=== PATIENT | female | born 1970 | race African-American/Black ===

== ENCOUNTER 2017-08-06 19:46 | Inpatient (IN) | payer MEDICAID ==
[~2017-08-06] VITALS: Ht 154.9 cm; Wt 78.9 kg
[2017-08-06] MEDS ORDERED: LOSARTAN POTASS25 MG ORAL (19:55)
[2017-08-06] MEDS ORDERED: ALBUTEROL2.5 MG/3 M INH (19:55)
[2017-08-06] MEDS ORDERED: SINGULAIR10 MG ORAL (19:55)
[2017-08-06] MEDS ORDERED: LASIX40 MG ORAL (19:55)
[2017-08-06] MEDS ORDERED: ADVAIR 100-501 EACH INH (19:55)
[2017-08-06] MEDS ORDERED: SPIRIVA18 MCG INH (19:55)
[2017-08-06] MEDS ORDERED: Ipratropium 0.02% Inh Soln 2.5ml UD HHN ONE (20:15)
[2017-08-06] MEDS ORDERED: Solu-MEDROL 125mg Inj IVP ONE (20:15)
[2017-08-06] MEDS ORDERED: Albuterol ud Inhalation HHN ONE (20:15)
--- NOTE | 2017-08-06 20:21 | Emergency Room Report ---
History of Present Illness General Chief Complaint: Dyspnea/Respdistress Source: Patient, EMS Present Illness HPI 46YOF BIBEMS with "SOB since April" - worse today. Used albuterol 6x. Not on prednisone. [place]" - comes with multiple belongings, bags States "no one can figure out whats wrong with me." Has COPD, CHF - on lasix - compliant Allergies: Coded Allergies: No Known Allergies (Unverified , 08/06/17) Patient History Past Medical History: CHF, COPD Past Surgical History: none Pertinent Family History: none Social History: Denies: smoking, alcohol use, drug use Last Menstrual Period: a wk ago Now: No Immunizations: UTD Reviewed Nursing Documentation: PMH: Agreed, PSxH: Agreed Nursing Documentation-PMH Hx Hypertension: Yes Hx Asthma: Yes Hx COPD: Yes - EMPHYSEMA Review of Systems All Other Systems: negative except mentioned in HPI Physical Exam Vital Signs Date Time Temp Pulse Resp B/P (MAP) Pulse Ox O2 Delivery O2 Flow Rate FiO2 08/06/17 19:38 97.3 121 20 135/98 95 Room Air Sp02 EP Interpretation: reviewed, normal General Appearance: normal inspection, well appearing, no apparent distress, alert, GCS 15, non-toxic Head: normocephalic, atraumatic Eyes: bilateral eye PERRL, bilateral eye EOMI ENT: normal ENT inspection, hearing grossly normal, normal pharynx, no angioedema, normal voice, TMs + canals normal, uvula midline, moist mucus membranes Neck: normal inspection, full range of motion, supple, thyroid normal, no meningismus, no bony tend Respiratory: normal inspection, no rhonchi, no respiratory distress, decreased breath sounds, accessory muscle use, chest symmetrical, palpation of chest normal Cardiovascular #1: no edema, no JVD, normal capillary refill, tachycardia Gastrointestinal: normal inspection, normal bowel sounds, non tender, soft, no mass, no peritonitis, non-distended, no guarding, no hernia, no pulsatile mass Genitourinary: no CVA tenderness Musculoskeletal: normal inspection, back normal, normal range of motion, no calf tenderness, pelvis stable, Librado's Sign negative Neurologic: normal inspection, alert, oriented x3, responsive, electronic equipment maint tech III-XII nml as tested, motor strength/tone normal, cerebellar normal, normal gait, speech normal Psychiatric: normal inspection, judgement/insight normal, mood/affect normal, no suicidal/homicidal ideation, no delusions Skin: normal inspection, normal color, no rash Lymphatic: normal inspection, no adenopathy Medical Decision Making Diagnostic Impression: Primary Impression: Dyspnea Qualified Codes: R06.00 - Dyspnea, unspecified Additional Impression: COPD exacerbation ER Course Tachycardia likley d/t albuterol inhaler X4-6 she used prior to arrival Labs: CXR: no acute CHF or PNA ECG shows sinus tachy Improved on Bipap with additional nebs, steroids, IV zithromax Endorsed: Dr King covering for Dr Benavidez per insurance ROGER admit, 902pm Elevated BNP however CXR doesnt show pulm congestion and patient took her lasix today "without much urinary output." Leaning more towards COPD exacerbation Afebrile, no leuks, no PNA on CXR - Additional Abx not given, patient not septic appearing EKG Diagnostic Results Rate: tachycardiac Rhythm: NSR ASA given to the pt in ED: No Rhythm Strip Diag. Results EP Interpretation: yes Rate: 122 Rhythm: NSR, no PVC's, no ectopy Chest X-Ray Diagnostic Results Chest X-Ray Diagnostic Results : Chest X-Ray Ordered: Yes # of Views/Limited/Complete: 1 View Indication: Shortness of Breath EP Interpretation: Yes Interpretation: no consolidation, no effusion, no pneumothorax, no acute cardiopulmonary disease Impression: No acute disease Electronically Signed by: Dr Sid Mon MD Last Vital Signs Date Time Temp Pulse Resp B/P (MAP) Pulse Ox O2 Delivery O2 Flow Rate FiO2 08/06/17 19:50 121 20 Room Air 08/06/17 19:38 97.3 135/98 95 Status: improved Disposition: ADMITTED INPATIENT Condition: Serious SID MON M.D. Aug 06, 2017 20:21
[2017-08-06 20:26] LABS: BASOPHILS % (AUTO) 1.4 % (0.0-2.0); EOSINOPHILS % (AUTO) 3.3 % (0.0-3.0); LYMPHOCYTES % (AUTO) 37.7 % (20.0-45.0); MEAN CORPUSCULAR HEMOGLOBIN 26.8 PG (27.0-31.0); MEAN CORPUSCULAR VOLUME 96 FL (80-99); MEAN PLATELET VOLUME 6.3 FL (6.5-10.1); MONOCYTES % (AUTO) 6.9 % (1.0-10.0); NEUTROPHILS % (AUTO) 50.8 % (45.0-75.0); PLATELET COUNT 435 K/UL (150-450); RED BLOOD COUNT 5.03 M/UL (4.20-5.40); RED CELL DISTRIBUTION WIDTH 16.1 % (11.6-14.8); WHITE BLOOD COUNT 10.5 K/UL (4.8-10.8)
[2017-08-06 20:37] LABS: ANION GAP 5 mmol/L (5-15); CALCIUM 9.1 MG/DL (8.5-10.1); CARBON DIOXIDE 33 MMOL/L (21-32); CHLORIDE 103 MMOL/L (98-107); CREATININE 1.1 MG/DL (0.55-1.30); GLOMERULAR FILTRATION RATE 53.7 mL/min (>60); POTASSIUM 3.6 MMOL/L (3.5-5.1); SODIUM 141 MMOL/L (136-145)
[2017-08-06 20:50] LABS: ALANINE AMINOTRANSFERASE 43 U/L (12-78); ALBUMIN/GLOBULIN RATIO 0.8 (1.0-2.7); ASPARTATE AMINO TRANSFERASE 36 U/L (15-37); CKMB 2.1 NG/ML (0.0-3.6); TOTAL PROTEIN 8.1 G/DL (6.4-8.2)
[2017-08-06 21:12] VITALS: BP 139/101
[2017-08-06] MEDS ORDERED: Zolpidem 5mg tab ORAL PRN (22:15)
[2017-08-07] VITALS: BP 120/78
[2017-08-07] MEDS: Solu-MEDROL 125mg Inj IVP SCH ×3 (00:16→11:43)
[2017-08-07] MEDS: Albuterol/Ipratropium 3ml neb HHN SCH ×4 (01:00→19:00)
[2017-08-07] MEDS ORDERED: D5 1/2NS 1,000 ML IV SCH (02:00)
[2017-08-07 04:00] VITALS: BP 115/91
[2017-08-07] MEDS: Heparin 5000 units/ml inj SUBQ SCH ×3 (05:33→21:06)
[2017-08-07 06:03] LABS: BASOPHILS % (AUTO) 0.4 % (0.0-2.0); EOSINOPHILS % (AUTO) 0.1 % (0.0-3.0); LYMPHOCYTES % (AUTO) 14.2 % (20.0-45.0); MEAN CORPUSCULAR HEMOGLOBIN 29.7 PG (27.0-31.0); MEAN CORPUSCULAR HGB CONC 31.2 G/DL (32.0-36.0); MEAN CORPUSCULAR VOLUME 95 FL (80-99); MEAN PLATELET VOLUME 6.7 FL (6.5-10.1); MONOCYTES % (AUTO) 1.2 % (1.0-10.0); NEUTROPHILS % (AUTO) 84.2 % (45.0-75.0); PLATELET COUNT 402 K/UL (150-450); RED BLOOD COUNT 4.44 M/UL (4.20-5.40); RED CELL DISTRIBUTION WIDTH 16.4 % (11.6-14.8); WHITE BLOOD COUNT 9.2 K/UL (4.8-10.8)
[2017-08-07 06:22] LABS: ANION GAP 7 mmol/L (5-15); CALCIUM 9.1 MG/DL (8.5-10.1); CARBON DIOXIDE 30 MMOL/L (21-32); CHLORIDE 103 MMOL/L (98-107); GLOMERULAR FILTRATION RATE > 60 mL/min (>60); POTASSIUM 4.2 MMOL/L (3.5-5.1); SODIUM 140 MMOL/L (136-145)
[2017-08-07 06:26] LABS: ALANINE AMINOTRANSFERASE 40 U/L (12-78); ALBUMIN/GLOBULIN RATIO 0.7 (1.0-2.7); ASPARTATE AMINO TRANSFERASE 31 U/L (15-37); MAGNESIUM 1.6 MG/DL (1.8-2.4); PHOSPHORUS 5.8 MG/DL (2.5-4.9); TOTAL PROTEIN 7.6 G/DL (6.4-8.2)
[2017-08-07 08:00] VITALS: BP 133/103
[2017-08-07] MEDS ORDERED: Azithromycin 500 MG in NS 275 ML IV SCH (09:00)
--- NOTE | 2017-08-07 11:53 | Diagnostic Imaging Report ---
Indication: Reason For Exam: SOB Technique: One view of the chest Comparison: none Findings: Heart is enlarged. The lungs and pleural spaces are clear. Impression: Cardiomegaly. No acute process
[2017-08-07 12:00] VITALS: BP 114/77
--- NOTE | 2017-08-07 12:14 | Consultation ---
Consult Note Consult Note [facility] DICTATION # [id number] LATANYA CORDERO M.D. Aug 07, 2017 12:14
[2017-08-07] MEDS: Furosemide 40mg tab ORAL SCH (14:21)
--- NOTE | 2017-08-07 15:27 | Cardiology Report ---
APPROVED REPORT EXAM: Two-dimensional and M-mode echocardiogram with Doppler and color Doppler. INDICATION Congestive Heart Failure M-Mode DIMENSIONS IVSd1.1 (0.7-1.1cm)Left Atrium (MM)4.1 (1.6-4.0cm) LVDd5.1 (3.5-5.6cm)Aortic Root2.4 (2.0-3.7cm) PWd0.8 (0.7-1.1cm)Aortic Cusp Exc.1.7 (1.5-2.0cm) LVDs4.2 (2.5-4.0cm) PWs1.3 cm Normal left ventricular chamber size. Global left ventricular hypokinesis. Left ventricular ejection fraction estimated to be 15-20 %. Borderline left ventricular hypertrophy. No evidence of pericardial effusion. Mild bi-atrial enlargement. Right ventricular chamber sizes is within normal limits. Focal aortic valve sclerosis with adequate cusp excursion. Thickened mitral valve leaflets with normal excursion. Mitral annulus and aortic root calcification. Pulmonic valve not well visualized. Normal tricuspid valve structure. IVC dilated at 2.1 cm with physiologic collapse suggestive of increased RA pressure. Possible echogenic material noted in LV [place]. A color flow and spectral Doppler study was performed and revealed: Trace aortic regurgitation. Moderate mitral regurgitation. Mitral inflow indicates restrictive pattern, implying severely elevated left atrial pressure (Grade III ). Moderate to severe, tricuspid regurgitation. Tricuspid systolic velocities suggests peak right ventricular systolic pressure of 44 mmHg, consistent with mild pulmonary hypertension. No pulmonic regurgitation present.
[2017-08-07 16:00] VITALS: BP 107/81
--- NOTE | 2017-08-07 16:48 | Cardiology Report ---
APPROVED REPORT EKG Measurement Heart [id number] Sinus tachycardia Possible Left atrial enlargement Anterior infarct, age undetermined Abnormal ECG
[2017-08-07] MEDS: Solu-MEDROL 40mg Inj IVP SCH ×2 (17:47→21:05)
[2017-08-07 20:00] VITALS: BP 130/85
--- NOTE | 2017-08-07 21:30 | Consultation ---
DATE OF CONSULTATION: 08/07/2017 PULMONARY CONSULTATION CONSULTING PHYSICIAN: Javier Blackwood M.D. REFERRING PHYSICIAN: Morgan Ennis M.D. REASON FOR CONSULTATION: COPD exacerbation. HISTORY OF PRESENT ILLNESS: The patient is a very unfortunate 46-year-old female, extensive former smoker with a history of COPD with multiple exacerbations over the course of the past few months who was actually due to see her pack changer, Dr. Patrick Thompson, today when she noted yesterday to have sudden onset of shortness of breath, cough, wheezing. She is on Advair, Spiriva, and Ventolin. She ran out of her Spiriva recently. She used her Ventolin multiple times without any alleviation, so she came into the ER. She also has CHF. Since, she presenting to the ER, she was placed on a Venturi mask. She was hypoxemic, but has been afebrile. She feels that her shortness of breath is better, she is coughing less and her wheezing has improved. PAST MEDICAL HISTORY: 1. COPD. 2. Asthma. 3. CHF. PAST SURGICAL HISTORY: None. ALLERGIES: No known drug allergies. MEDICATIONS: Prior to admission medications; Spiriva, Ventolin, Advair, Lasix, Singulair. Current medications per EMR. SOCIAL HISTORY: Extensive tobacco, quit a month ago. Prior cocaine user. No current drug or alcohol use. FAMILY HISTORY: Noncontributory. REVIEW OF SYSTEMS: Negative other than history of present illness. PHYSICAL EXAMINATION: VITAL SIGNS: Temperature 97, pulse 109, blood pressure 133/103, respiratory rate 21, saturating 92% on 14 liters of venturi mask at 55%. GENERAL: She is a well-developed and well-nourished female, in no acute distress. Awake, alert, and oriented x3. HEENT: Normocephalic and atraumatic. Oropharynx is clear with moist mucous membranes. NECK: Supple without any lymphadenopathy or JVD. CHEST: Distant, but clear. HEART: Regular rate and rhythm. ABDOMEN: Soft and nondistended. EXTREMITIES: No cyanosis, clubbing, or edema. ANCILLARY DATA: Chest x-ray, hyperinflation is noted, but no infiltrate, effusion, or other abnormality. Labs reviewed. U-tox positive for marijuana. ASSESSMENT: The patient is a 46-year-old female smoker with history of prior drug use, asthma as a child, chronic obstructive pulmonary disease is an adult, and congestive heart failure, presenting with shortness of breath and hypoxemia, likely secondary to an exacerbation of her chronic obstructive pulmonary disease. She has improved with IV steroids and bronchodilators. She is fairly stable at this point from a respiratory standpoint and the main issue is her hypoxemia and shortness of breath, which are slowly improving. PROBLEM LIST: 1. Chronic obstructive pulmonary disease with acute exacerbation. 2. History of asthma as a child. 3. Congestive heart failure without evidence of acute decompensated heart failure. 4. Extensive prior tobacco use. 5. History of prior drug use. TREATMENT PLAN: 1. Optimize pulmonary hygiene/mobilize as tolerated. 2. Titrate down FiO2 to keep saturation greater than 92%. 3. Around the clock and p.r.n. DuoNeb. 4. Solu-Medrol 60 mg IV q.6 h., we will decrease to 40 mg IV t.i.d. and taper further based on clinical response. 5. Continue p.o. azithromycin, today will be day #2. We will complete a five-day course. 6. Follow sputum culture and respiratory panel. 7. Discontinue IV fluids and resume home Lasix. 8. DVT prophylaxis. Heparin subcutaneous. 9. Encourage abstinence from tobacco and drug use. 10. Postdischarge, the patient will follow up with Dr. Thompson, her pack changer. Dr. Ennis, thank you for allowing me to assist in the care of your patient. If I may be of any assistance in the future, please do not hesitate to ask. Parul Cortez JOB#: [id number] CC:
[2017-08-08] VITALS: BP 135/78
[2017-08-08] MEDS: Albuterol/Ipratropium 3ml neb HHN SCH ×4 (01:00→19:03)
[2017-08-08 04:00] VITALS: BP 116/90
[2017-08-08] MEDS: Solu-MEDROL 40mg Inj IVP SCH ×2 (05:23→22:10)
[2017-08-08] MEDS: Heparin 5000 units/ml inj SUBQ SCH ×3 (05:23→14:02)
--- NOTE | 2017-08-08 08:30 | History and Physical Report ---
DATE OF ADMISSION: 08/06/2017 TIME OF EXAM: 10:45 a.m. CHIEF COMPLAINT: Shortness of breath. HISTORY OF PRESENT ILLNESS: This is a pleasant 46-year-old woman with history of COPD with number of recent readmissions to hospital at [facility] for COPD exacerbation, quit smoking two weeks ago, congestive heart failure, and hypertension, presented to [facility] emergency room with a complaint of shortness of breath. The patient was diagnosed with COPD exacerbation. The patient required BiPAP on admission. The patient was treated with IV Solu-Medrol in the form of nebulizer in the emergency room. At the present time, the patient is off BiPAP, speaks full sentences. Denies any chest pain. No nausea or vomiting. No abdominal pain. Still feels short of breath and feels that if she eats food, because of her lung status she has difficulty with swallowing. However, the patient does not disclose any swallowing difficulty at home prior to presentation. The patient denies any fever or chills. Reports of some whitish sputum production. No sick contacts. No recent travel. PAST SURGICAL HISTORY: None. MEDICATIONS: Medications at home, please refer to the medication reconciliation I have reviewed at length. ALLERGIES: No known drug allergies. SOCIAL HISTORY: The patient still but . She has five children. The patient quit smoking about two weeks ago. No illicit drug use. No alcohol abuse. FAMILY HISTORY: Mother had a brain aneurysm and at the age of 43. Father with history of diabetes and congestive heart failure. REVIEW OF SYSTEMS: A 14-point review of systems done.CONSTITUTIONAL: Generalized weakness. No fever or chills. HEENT: No change in vision. No tinnitus, No dysphagia. CARDIAC: No chest pain. No palpitation. History of congestive heart failure, hypertension, long history of COPD, reported of wheezing and shortness of breath. Does not have any home oxygen. ABDOMEN: No nausea, vomiting, or abdominal pain. Reported of some dysphagia during the acute COPD exacerbation. GENITOURINARY: No dysuria. No hematuria. No flank pain. NEUROLOGIC: No history of CVA or history of TIA. All other systems reviewed and negative except what is mentioned above. PHYSICAL EXAMINATION: GENERAL: The patient is sitting in bed. No acute distress. Speaks in full sentences. No accessory muscle use. VITAL SIGNS: Respiratory rate of 20, O2 saturation 99% on oxygen 2 liters by Ventimask at FiO2 of 55%, blood pressure 115/91, and afebrile, 98.5 degrees Fahrenheit. NECK: Supple. CARDIAC: S1 and S2 normal. A 1/6 systolic murmur at the left sternal border. LUNGS: Bilateral expiratory wheezing and decreased air movement and breath sounds noted. ABDOMEN: Soft. Positive bowel sounds. Nontender and nondistended. No guarding. No rebound. EXTREMITIES: No edema or cyanosis. NEUROLOGIC: No focal sensory or motor deficit. LABORATORY AND DIAGNOSTIC DATA: Upon admission, WBC 10.5, hemoglobin 13.5, hematocrit 48.1, platelets are 435,000. Sodium 141, potassium 3.6, chloride 103, bicarbonate 33, BUN 18, creatinine 1.1, glucose 112, and calcium 9.1. AST 36, ALT 43, and alkaline phosphatase 112. Creatine kinase 143. CK-MB 2.1. BNP 6092. Total protein 8.1. Albumin 3.5. Troponin 0.034. 12-lead EKG: Sinus tachycardia at a rate of about 120 with left atrial enlargement, poor R-wave progression, and low voltage. No ST elevation or depression. Nonspecific T-wave changes. CHEST X-RAY: No infiltrate, no consolidation. Evidence of COPD. IMPRESSION: 1. Respiratory failure. 2. [id number] obstructive pulmonary disease exacerbation. 3. Elevated BNP with underlying congestive heart failure, query for the acute decompensation of underlying congestive heart failure, unclear systolic versus diastolic. 4. Bronchospasm. 5. Hypertension. 6. Wheezing. 7. History of nicotine dependence, quit two weeks ago. PLAN: 1. The patient will be monitored in stepdown unit. 2. assistant manager bilingual. 3. Solu-Medrol 60 IV q.8 initially, now with downgraded to 40 IV q.8. 4. Oxygen to titrate O2 saturation above 92%. 5. Pulmonary evaluation. 6. A 2D echocardiogram. 7. Cardiology evaluation. 8. Diuretics. 9. We will hold IV fluids. 10. DVT and GI prophylaxis. 11. We will check electrolytes and repeat as indicated. 12. DuoNeb one vial q.4 h. [id number]. 13. Sputum for culture if any. 14. Azithromycin 500 IV daily. 15. Further recommendations will follow pending the patient's response to above measures and input by provider contracting consultant. 16. Code status is Full Code. 17. Discharge planning within two days to home. 18. Please see orders for further recommendations. Time spent on evaluation and inclusion of care is 70 minutes. Morgan D Parul Ennis DR: [place] JOB#: [id number] CC: JEANETTE
[2017-08-08] MEDS: Furosemide 40mg tab ORAL SCH (08:36)
[2017-08-08] MEDS: Azithromycin 250mg tab ORAL SCH (08:36)
[2017-08-08 08:47] VITALS: BP 120/95
[2017-08-08] MEDS ORDERED: Losartan 25mg tab ORAL SCH (09:00)
--- NOTE | 2017-08-08 11:38 | Pulmonology Progress Note ---
Assessment/Plan Problems: (1) Cardiomyopathy Assessment/Plan ASSESSMENT: The patient is a 46-year-old female smoker with history of prior drug use, asthma as a child, chronic obstructive pulmonary disease is an adult, and congestive heart failure, presenting with shortness of breath and hypoxemia, likely secondary to an exacerbation of her chronic obstructive pulmonary disease. She has improved with IV steroids and bronchodilators. She is fairly stable at this point from a respiratory standpoint and the main issue is her hypoxemia and shortness of breath, which are slowly improving. PROBLEM LIST: 1. Chronic obstructive pulmonary disease with acute exacerbation. 2. History of asthma as a child. 3. Congestive heart failure with EF 15 and hypokinesis + a component of ADHF 4. Extensive prior tobacco use. 5. History of prior drug use. TREATMENT PLAN: 1. Optimize pulmonary hygiene/mobilize as tolerated. 2. Titrate down FiO2 to keep saturation greater than 92%. 3. Around the clock and p.r.n. DuoNeb. 4. Decrease Solu-Medrol 40 mg IV BID and taper 5. PO Azithro (D3/5) 6. Follow sputum culture and respiratory panel. 7. Lasix 40 IV BID 8. Cardiology evaluation 9. DVT prophylaxis. Heparin subcutaneous. 10. Encourage abstinence from tobacco and drug use. 11. Postdischarge, the patient will follow up with Dr. Thompson, her biology faculty member. Subjective Allergies: Coded Allergies: No Known Allergies (Unverified , 08/06/17) Subjective AFVSS, stable on 2L NC, I/O inaccurate, EF 15-20% Less SOB, less cough, no wheezing, no F/C, no CP Objective Last 24 Hour Vital Signs Date Time Temp Pulse Resp B/P (MAP) Pulse Ox O2 Delivery O2 Flow Rate FiO2 08/08/17 08:47 98.1 101 21 120/95 100 Nasal Cannula 2.0 28 08/08/17 08:36 120/95 08/08/17 08:11 101 20 100 Nasal Cannula 2.0 08/08/17 08:00 102 18 100 Nasal Cannula 2.0 28 08/08/17 08:00 100 08/08/17 04:00 96 08/08/17 04:00 98.4 99 20 116/90 94 Nasal Cannula 2.0 08/08/17 02:34 Nasal Cannula 2.0 08/08/17 02:34 Nasal Cannula 2.0 08/08/17 00:00 99 08/08/17 00:00 98.0 100 20 135/78 100 Nasal Cannula 2.0 08/07/17 20:47 Nasal Cannula 2.0 08/07/17 20:47 Nasal Cannula 2.0 08/07/17 20:00 98.6 100 20 130/85 100 Nasal Cannula 2.0 08/07/17 20:00 101 08/07/17 16:00 96 08/07/17 16:00 97.5 99 22 107/81 100 Nasal Cannula 2.0 08/07/17 12:58 101 08/07/17 12:44 102 18 99 Nasal Cannula 2.0 28 08/07/17 12:32 101 20 96 Nasal Cannula 2.0 28 08/07/17 12:00 97.0 97 21 114/77 100 Nasal Cannula 2.0 Intake and Output 08/07/17 08/08/17 19:00 07:00 Intake Total 515 ml 400 ml Balance 515 ml 400 ml Intake Oral 240 ml 400 ml IV Total 275 ml # Voids 3 2 # Bowel Movements 4 General Appearance: no acute distress HEENT: normocephalic, atraumatic, mucous membranes moist Respiratory/Chest: crackles/rales - BiB , rhonchi - scattered clear with coughing Cardiovascular: regular rhythm, JVD - 6 cm, tachycardia Abdomen: normal bowel sounds, soft, non tender, no organomegaly, non distended Extremities: no cyanosis, no clubbing, other - trace KERI Current Medications Medications (Trade) Dose Ordered Sig/Ana Paula Route PRN Reason Start Time Stop Time Status Last Admin Dose Admin Acetaminophen (Tylenol) 650 mg Q6HR PRN ORAL Pain Scale (3-5) 08/06/17 22:15 09/05/17 22:14 Albuterol/ Ipratropium (Albuterol/ Ipratropium) 3 ml Q6HRT HHN 08/07/17 01:00 08/12/17 00:59 08/08/17 08:25 Azithromycin (Zithromax) 250 mg DAILY ORAL 08/08/17 09:00 08/15/17 08:59 08/08/17 08:36 Furosemide (Lasix) 40 mg DAILY ORAL 08/07/17 14:00 09/06/17 13:59 08/08/17 08:36 Heparin Sodium (Porcine) (Heparin 5000 units/ml) 5,000 units EVERY 8 HOURS SUBQ 08/07/17 06:00 09/06/17 05:59 08/07/17 21:06 Losartan Potassium (Cozaar) 25 mg DAILY ORAL 08/08/17 09:00 09/07/17 08:59 08/08/17 08:36 Methylprednisolone Sodium Succinate (Solu-MEDROL) 40 mg Q8HR IVP 08/07/17 18:00 09/06/17 17:59 08/08/17 05:23 Zolpidem Tartrate (Ambien) 5 mg BEDTIME PRN ORAL Insomnia 08/06/17 22:15 08/13/17 22:14 LATANYA CORDERO M.D. Aug 08, 2017 11:38
[2017-08-08 12:08] VITALS: BP 126/77
[2017-08-08] MEDS ORDERED: D5 1/2NS 1000ml IV ONE (15:59)
[2017-08-08 16:00] VITALS: BP 118/83
--- NOTE | 2017-08-08 19:33 | Cardiology Progress Note ---
Assessment/Plan Assessment/Plan [id number] diuretic acei instead of arb abstinence form cocaine tobacco and etoh compliance with med na and fluid restriction once chf better needs to have coerg added all above discussed with pt need anticoagulation for possible lv thrombus Objective Last 24 Hour Vital Signs Date Time Temp Pulse Resp B/P (MAP) Pulse Ox O2 Delivery O2 Flow Rate FiO2 08/08/17 19:03 95 18 97 Nasal Cannula 2.0 28 08/08/17 16:00 98 08/08/17 16:00 97.2 98 21 118/83 95 Nasal Cannula 2.0 28 08/08/17 13:44 99 20 100 Nasal Cannula 2.0 08/08/17 13:36 98 18 100 Nasal Cannula 2.0 28 08/08/17 12:08 97.7 101 22 126/77 97 Room Air 2.0 08/08/17 11:43 103 08/08/17 08:47 98.1 101 21 120/95 100 Nasal Cannula 2.0 28 08/08/17 08:36 120/95 08/08/17 08:11 101 20 100 Nasal Cannula 2.0 08/08/17 08:00 102 18 100 Nasal Cannula 2.0 28 08/08/17 08:00 100 08/08/17 04:00 96 08/08/17 04:00 98.4 99 20 116/90 94 Nasal Cannula 2.0 08/08/17 02:34 Nasal Cannula 2.0 08/08/17 02:34 Nasal Cannula 2.0 08/08/17 00:00 99 08/08/17 00:00 98.0 100 20 135/78 100 Nasal Cannula 2.0 08/07/17 20:47 Nasal Cannula 2.0 08/07/17 20:47 Nasal Cannula 2.0 08/07/17 20:00 98.6 100 20 130/85 100 Nasal Cannula 2.0 08/07/17 20:00 101 Intake and Output 08/07/17 08/08/17 19:00 07:00 Intake Total 515 ml 400 ml Balance 515 ml 400 ml Intake Oral 240 ml 400 ml IV Total 275 ml # Voids 3 2 # Bowel Movements 4 DAMARIS RIOS Aug 08, 2017 19:33
[2017-08-08 20:00] VITALS: BP 115/80
--- NOTE | 2017-08-08 20:10 | Internal Med Progress Note ---
Subjective Date of Service: Aug 08, 2017 Physician Name Jesus Desai Attending Physician Jesus Desai Current Medications Medications (Trade) Dose Ordered Sig/Ana Paula Route PRN Reason Start Time Stop Time Status Last Admin Dose Admin Acetaminophen (Tylenol) 650 mg Q6HR PRN ORAL Pain Scale (3-5) 08/06/17 22:15 09/05/17 22:14 Albuterol/ Ipratropium (Albuterol/ Ipratropium) 3 ml Q6HRT HHN 08/07/17 01:00 08/12/17 00:59 08/08/17 19:03 Azithromycin (Zithromax) 250 mg DAILY ORAL 08/08/17 09:00 08/15/17 08:59 08/08/17 08:36 Furosemide (Lasix) 40 mg EVERY 12 HOURS IV 08/08/17 21:00 09/07/17 20:59 Heparin Sodium (Porcine) (Heparin 5000 units/ml) 2,000 units ONCE ONCE IV 08/08/17 20:15 08/08/17 20:16 Heparin Sodium/ Dextrose 500 ml @ 28.413 mls/ hr adjust per protocol IV 08/08/17 20:15 09/07/17 20:14 Lisinopril (Zestril) 10 mg DAILY ORAL 08/08/17 21:00 09/07/17 20:59 Methylprednisolone Sodium Succinate (Solu-MEDROL) 40 mg Q12HR IVP 08/08/17 21:00 09/07/17 20:59 Warfarin Sodium (Coumadin per pharmacy) 1 ea DAILY PRN MISC Per rx protocol 08/08/17 19:30 09/07/17 19:29 UNV Zolpidem Tartrate (Ambien) 5 mg BEDTIME PRN ORAL Insomnia 08/06/17 22:15 08/13/17 22:14 Allergies: Coded Allergies: No Known Allergies (Unverified , 08/06/17) Social History reviewed no change Family History reviewed no change Cardiovascular: Reports: no symptoms, chest pain, edema, irregular heart rate, lightheadedness, palpitations, syncope, other Respiratory: Reports: no symptoms, cough, orthopnea, shortness of breath, SOB with excertion, SOB at rest, sputum, stridor, wheezing, other Objective Last Vital Signs Date Time Temp Pulse Resp B/P (MAP) Pulse Ox O2 Delivery O2 Flow Rate FiO2 08/08/17 19:14 94 20 100 Nasal Cannula 2.0 08/08/17 19:03 28 08/08/17 16:00 97.2 118/83 Intake and Output 08/07/17 08/08/17 19:00 07:00 Intake Total 515 ml 400 ml Balance 515 ml 400 ml Intake Oral 240 ml 400 ml IV Total 275 ml # Voids 3 2 # Bowel Movements 4 Assessment/Plan Assessment/Plan PROBLEM LIST: 1. Chronic obstructive pulmonary disease with acute exacerbation. 2. History of asthma as a child. 3. acute systolic Congestive heart failure with EF 15 and hypokinesis + a component of ADHF 4. Extensive prior tobacco use. 5. History of prior drug use. PLAN: 1. Optimize pulmonary hygiene/mobilize as tolerated. 2. Titrate down FiO2 t 1. keep saturation greater than 92%. 3. DuoNeb. 4. Decrease Solu-Medrol 40 mg IV BID and taper 5. PO Azithro Day 3/5 6. Follow sputum culture and respiratory panel. 7. Lasix 40 IV BID 8. Cardiology evaluation appreciated.titrate cardiac meds. 2D echo noted 9. DVT prophylaxis. Heparin subcutaneous. 10. Encourage abstinence from tobacco and drug use. 11. anticoagulation with coumadin monitor INR 12.ambulate JESUS DESAI Aug 08, 2017 20:10
[2017-08-08] MEDS ORDERED: Heparin 5000 units/ml inj IV ONE (20:15)
[2017-08-08] MEDS ORDERED: Heparin 25,000u/D5W 500ml 500 ML IV SCH (20:15)
[2017-08-08 20:20] LABS: MEAN CORPUSCULAR HEMOGLOBIN 27.9 PG (27.0-31.0); MEAN CORPUSCULAR HGB CONC 29.1 G/DL (32.0-36.0); MEAN CORPUSCULAR VOLUME 96 FL (80-99); MEAN PLATELET VOLUME 6.7 FL (6.5-10.1); PLATELET COUNT 365 K/UL (150-450); RED BLOOD COUNT 4.33 M/UL (4.20-5.40); RED CELL DISTRIBUTION WIDTH 16.2 % (11.6-14.8); WHITE BLOOD COUNT 20.7 K/UL (4.8-10.8)
[2017-08-08 20:34] LABS: INR 1.1 (0.9-1.1); PROTHROMBIN TIME 11.5 SEC (9.30-11.50)
[2017-08-08] MEDS ORDERED: Warfarin Sodium 5mg ORAL ONE (21:00)
[2017-08-08] MEDS: Lisinopril 10mg tab ORAL SCH (21:00)
[2017-08-08 22:37] LABS: LYMPHOCYTES % (MANUAL) 6 % (20-45); NEUTROPHILS % (MANUAL) 92 % (45-75); TOTAL CELLS COUNTED 100
[2017-08-08 22:38] LABS: BAND NEUTROPHILS % (MANUAL) 0 % (0-8); BASOPHILS % (MANUAL) 0 % (0-2); EOSINOPHILS % (MANUAL) 0 % (0-3); PLATELET ESTIMATE ADEQUATE
[2017-08-08 22:44] LABS: HYPOCHROMASIA 2+; PLATELET MORPHOLOGY NORMAL; POLYCHROMASIA 1+
[2017-08-09] VITALS: BP 120/73
[2017-08-09] MEDS: Albuterol/Ipratropium 3ml neb HHN SCH ×4 (01:22→18:55)
[2017-08-09 01:45] LABS: MEAN CORPUSCULAR HEMOGLOBIN 29.1 PG (27.0-31.0); MEAN CORPUSCULAR HGB CONC 30.5 G/DL (32.0-36.0); MEAN CORPUSCULAR VOLUME 96 FL (80-99); MEAN PLATELET VOLUME 7.2 FL (6.5-10.1); PLATELET COUNT 397 K/UL (150-450); RED BLOOD COUNT 4.61 M/UL (4.20-5.40); RED CELL DISTRIBUTION WIDTH 16.5 % (11.6-14.8); WHITE BLOOD COUNT 19.5 K/UL (4.8-10.8)
[2017-08-09 02:02] LABS: INR 1.2 (0.9-1.1); PROTHROMBIN TIME 12.2 SEC (9.30-11.50)
[2017-08-09 02:04] LABS: ANION GAP 5 mmol/L (5-15); CALCIUM 9.5 MG/DL (8.5-10.1); CARBON DIOXIDE 34 MMOL/L (21-32); CHLORIDE 101 MMOL/L (98-107); CREATININE 1.7 MG/DL (0.55-1.30); GLOMERULAR FILTRATION RATE 39.4 mL/min (>60); MAGNESIUM 1.9 MG/DL (1.8-2.4); PHOSPHORUS 4.2 MG/DL (2.5-4.9); POTASSIUM 4.3 MMOL/L (3.5-5.1); SODIUM 140 MMOL/L (136-145)
[2017-08-09] MEDS ORDERED: Heparin Sod 1000 units/ml 10ml IV ONE (02:30)
[2017-08-09] MEDS ORDERED: Heparin 25,000u/D5W 500ml 500 ML IV SCH ×2 (02:30→11:10)
[2017-08-09 04:00] VITALS: BP 127/83
--- NOTE | 2017-08-09 05:02 | Consultation ---
DATE OF CONSULTATION: 08/08/2017 CARDIOLOGY CONSULTATION CONSULTING PHYSICIAN: Christo Cerda M.D. REFERRING PHYSICIAN: Javier Blackwood M.D. REASON FOR REFERRAL: Cardiomyopathy. HISTORY OF PRESENT ILLNESS: This is a very unfortunate 46-year-old female with history of asthma. She has had increasing shortness of breath over the past few months. She has had several hospitalizations and ER evaluations at [facility] and [facility] with 12 years of COPD exacerbation. At [facility], apparently did some echocardiogram and some kind of a dye test. They told her that she has congestive heart failure and cardiomyopathy. They gave her some diuretics, but she runs out of her diuretics and she gets into trouble with frequent emergency room visits apparently because of the shortness of breath . She was supposed to see a factorer, Dr. Thompson, yesterday, but increasing shortness of breath caused to come to the emergency room here at [facility]. She has been admitted to the hospital with a concern about possibility of congestive heart failure leading to this consultation. She really has not had any chest pain. She has dyspnea on exertion with minimal activity. She has no PND. She only uses 1-1/2 pillows equivalent. She has occasional dizziness on standing and she really has any palpitation. PAST MEDICAL HISTORY: Positive for history of asthma especially with exacerbation, cardiomyopathy, congestive heart failure. No diabetes. No high blood pressure. No heart attack. No cancer. No stroke. No hepatitis or tuberculosis. No ulcers. No kidney problems, liver problems, thyroid problems, anemia, arthritis, blood clots, HIV, or AIDS. ALLERGIES: She is not allergic to any medications. SOCIAL HISTORY: She smokes. She used to use cocaine up to April when she was having problems. She does not drink alcoholic beverages. REVIEW OF SYSTEMS: GASTROINTESTINAL: Episodes of diarrhea today. GENITOURINARY: Negative. PULMONARY: Negative. CONSTITUTIONAL: Negative. NEUROLOGICAL: Negative. PHYSICAL EXAMINATION: GENERAL: Shows to be a middle-aged female, in no respiratory distress. On my arrival, she was getting a handheld nebulizer breathing treatment. NECK: Supple. There is jugular venous distention to the angle of the jaw approximately 12 to 13 cm of water. LUNGS: Crackles noted at the bases. CARDIAC: Regular rate and rhythm. No heaves, thrills, or gallops noted. ABDOMEN: Soft and nontender. Positive bowel sounds. EXTREMITIES: There is no edema of the lower extremities. NEUROLOGICAL: She is awake, good, responsive, and in no apparent distress. LABORATORY AND DIAGNOSTIC DATA: White count 9.2, hemoglobin 13.2, and platelet count of 402. Sodium is 140, potassium 4.2, chloride 102, bicarbonate 30, BUN 19, creatinine 1.0, glucose of 180, calcium is 9.1, phosphorus of 5.8, magnesium 1.6. Total bilirubin 0.4. Troponin 0.034. ProBNP was 6092 yesterday. Albumin of 3.1. Toxicology screen positive for marijuana. Her chest x-ray shows cardiomegaly, no acute processes. An echocardiogram has been performed. Increased apical echoes are noted on the echocardiogram and left ventricle thrombus cannot be excluded. There is moderate amount of mitral regurgitation and there is moderate degree of tricuspid regurgitation as systolic pressure at least of 44, although the IVC to me appears to be larger. Ejection fraction estimated at 15% to 20%. There is global hypokinesis in both right ventricle and left ventricle was noted. The patient's electrocardiogram shows low voltage criteria, sinus tachycardia, and some nonspecific T-wave changes. ASSESSMENT: 1. Cardiomyopathy. 2. Asthma. 3. Congestive heart failure. 4. Mitral regurgitation. 5. Tricuspid regurgitation. 6. History of cocaine use. 7. Tobacco use disorder. 8. Questionable left ventricular thrombus with increased left ventricular apical echoes. PLAN: This patient was seen in cardiac consultation. The patient needs to be on diuretics and she needs to be on ELIZABETH inhibitors and probably at some point with factorer. Beta-torie should be instituted in light of the fact that she has increased echoes in the left ventricular apex and apical thrombus cannot be excluded. She probably should be on anticoagulation with Coumadin to prevent left ventricular thrombus from emboli. I have discussed with the patient the need for abstinence from alcohol, tobacco, and cocaine use and the need to comply with diet including fluid restriction and sodium restriction, which she was not aware of and compliance with medications to prevent recurrent admissions. She will require to see a electric brain wave equipment mechanic and I have asked her to make sure that her insurance company does get her a referral to one. She probably needs to be seen as an outpatient for anticoagulation dose adjustment. The patient should be on some ELIZABETH inhibitors. I do not think losartan is the best medication for her. I would prefer she be on lisinopril if at all possible. Her blood pressure is from 118 to 120s on 25 mg of losartan, so I think she may be able to tolerate 10 mg of lisinopril. Once she is stabilized and her heart failure is better, if no contraindication, she will have some Coreg added and Coumadin will be started. Christo Cerda M.D. DR: David JOB#: [id number] CC:
[2017-08-09 08:00] VITALS: BP 125/86
[2017-08-09] MEDS: Azithromycin 250mg tab ORAL SCH (09:23)
[2017-08-09] MEDS: Lisinopril 10mg tab ORAL SCH (09:23)
[2017-08-09] MEDS: Solu-MEDROL 40mg Inj IVP SCH ×2 (09:24→21:00)
--- NOTE | 2017-08-09 11:45 | General Progress Note ---
Assessment/Plan Assessment/Plan 1. Chronic obstructive pulmonary disease with acute exacerbation. 2. History of asthma as a child. 3. acute systolic Congestive heart failure with EF 15 and hypokinesis + a component of ADHF 4. Extensive prior tobacco use. 5. History of prior drug use. PLAN: 1. Optimize pulmonary hygiene 2. Titrate down FiO2 1. keep saturation greater than 92%. 3. DuoNeb. 4. Decrease Solu-Medrol 40 mg IV BID and taper 5. PO Azithro 6. Follow sputum culture 7. Lasix 40 IV BID 8. Cardiology evaluation appreciated.titrate cardiac meds. 2D echo noted 9. Encourage abstinence from tobacco and drug use. 10. anticoagulation with coumadin /heparin bridge monitor INR 11.ambulate d/w team Subjective Date patient seen: Aug 09, 2017 Respiratory: Reports: no symptoms, cough, orthopnea, shortness of breath, SOB with excertion, SOB at rest, sputum, stridor, wheezing, other Allergies: Coded Allergies: No Known Allergies (Unverified , 08/06/17) Objective Last 24 Hour Vital Signs Date Time Temp Pulse Resp B/P (MAP) Pulse Ox O2 Delivery O2 Flow Rate FiO2 08/09/17 09:23 125/86 08/09/17 08:00 97.7 92 20 125/86 97 Nasal Cannula 2.0 08/09/17 08:00 100 08/09/17 07:07 98 18 99 Room Air 08/09/17 06:57 96 18 96 Nasal Cannula 2.0 28 08/09/17 04:00 100 08/09/17 04:00 97.9 95 20 127/83 100 Nasal Cannula 2.0 08/09/17 01:33 99 20 100 Nasal Cannula 2.0 08/09/17 01:22 91 18 98 Nasal Cannula 2.0 28 08/09/17 00:00 97.7 97 20 120/73 100 Nasal Cannula 2.0 08/09/17 00:00 100 08/08/17 21:00 110/60 08/08/17 20:00 99 08/08/17 20:00 97.5 97 20 115/80 100 Nasal Cannula 2.0 08/08/17 19:14 94 20 100 Nasal Cannula 2.0 08/08/17 19:03 95 18 97 Nasal Cannula 2.0 08/08/17 16:00 98 08/08/17 16:00 97.2 98 21 118/83 95 Nasal Cannula 2.0 28 08/08/17 13:44 99 20 100 Nasal Cannula 2.0 08/08/17 13:36 98 18 100 Nasal Cannula 2.0 28 08/08/17 12:08 97.7 101 22 126/77 97 Room Air 2.0 Intake and Output 08/08/17 08/09/17 19:00 07:00 Intake Total 700 ml 448.652 ml Output Total 4 ml Balance 696 ml 448.652 ml Intake Oral 700 ml 250 ml IV Total 198.652 ml Output Urine Total 4 ml # Voids 3 # Bowel Movements 4 3 Laboratory Tests 08/08/17 20:05: White Blood Count 20.7H, Red Blood Count 4.33, Hemoglobin 12.1, Hematocrit 41.4 , Mean Corpuscular Volume 96, Mean Corpuscular Hemoglobin 27.9, Mean Corpuscular Hemoglobin Concent 29.1L, Red Cell Distribution Width 16.2H, Platelet Count 365, Mean Platelet Volume 6.7, Neutrophils (%) (Auto) , Lymphocytes (%) (Auto) , Monocytes (%) (Auto) , Eosinophils (%) (Auto) , Basophils (%) (Auto) , Differential Total Cells Counted 100, Neutrophils % ( Manual) 92H, Lymphocytes % (Manual) 6L, Monocytes % (Manual) 2, Eosinophils % ( Manual) 0, Basophils % (Manual) 0, Band Neutrophils 0, Platelet Estimate Adequate, Platelet Morphology Normal, Polychromasia 1+, Hypochromasia 2+, Prothrombin Time 11.5, Prothromb Time International Ratio 1.1, Activated Partial Thromboplast Time 23 08/09/17 01:25: White Blood Count 19.5H, Red Blood Count 4.61, Hemoglobin 13.4, Hematocrit 44.1 , Mean Corpuscular Volume 96, Mean Corpuscular Hemoglobin 29.1, Mean Corpuscular Hemoglobin Concent 30.5L, Red Cell Distribution Width 16.5H, Platelet Count 397, Mean Platelet Volume 7.2, Neutrophils (%) (Auto) , Lymphocytes (%) (Auto) , Monocytes (%) (Auto) , Eosinophils (%) (Auto) , Basophils (%) (Auto) , Prothrombin Time 12.2H, Prothromb Time International Ratio 1.2H, Activated Partial Thromboplast Time 48H, Sodium Level 140, Potassium Level 4.3, Chloride Level 101, Carbon Dioxide Level 34H, Anion Gap 5, Blood Urea Nitrogen 40H, Creatinine 1.7H, Estimat Glomerular Filtration Rate 39.4, Glucose Level 211H, Calcium Level 9.5, Phosphorus Level 4.2, Magnesium Level 1.9, Troponin I 0.023 08/09/17 08:30: Activated Partial Thromboplast Time > 150*H Height (Feet): 5 Height (Inches): 1.00 Weight (Pounds): 149 General Appearance: no apparent distress EENT: PERRL/EOMI, normal ENT inspection Neck: supple, normal inspection Cardiovascular: normal rate, no JVD, systolic murmur, gallop/S3 Respiratory/Chest: rhonchi - bilaterally Abdomen: normal bowel sounds, non tender, soft, no organomegaly, no mass Extremities: normal range of motion, non-tender, normal inspection, no calf tenderness Edema: no edema noted Arm (L), no edema noted Arm (R), 1+ Leg (L), 1+ Leg (R), 1+ Pedal (L), 1+ Pedal (R) Edema: trace edema Neurologic: insurance instructor II-XII grossly normal Skin: normal pigmentation, warm/dry, no diaphoresis JESUS DESAI Aug 09, 2017 11:45
[2017-08-09 12:00] VITALS: BP 109/70
[2017-08-09 16:00] VITALS: BP 143/86
[2017-08-09] MEDS ORDERED: Warfarin Sodium 5mg ORAL ONE (17:00)
--- NOTE | 2017-08-09 17:28 | Pulmonology Progress Note ---
Assessment/Plan Problems: (1) Cardiomyopathy Assessment/Plan ASSESSMENT: The patient is a 46-year-old female smoker with history of prior drug use, asthma as a child, chronic obstructive pulmonary disease is an adult, and congestive heart failure, presenting with shortness of breath and hypoxemia, likely secondary to an exacerbation of her chronic obstructive pulmonary disease. She has improved with IV steroids and bronchodilators. She is fairly stable at this point from a respiratory standpoint and the main issue is her hypoxemia and shortness of breath, which are slowly improving. PROBLEM LIST: 1. Chronic obstructive pulmonary disease with acute exacerbation. 2. History of asthma as a child. 3. Congestive heart failure with EF 15 and hypokinesis + a component of ADHF 4. Extensive prior tobacco use. 5. History of prior drug use. TREATMENT PLAN: 1. Optimize pulmonary hygiene/mobilize as tolerated. 2. Titrate down FiO2 to keep saturation greater than 92%. 3. Around the clock and p.r.n. DuoNeb. 4. Decrease Solu-Medrol 30 mg IV BID and taper 5. PO Azithro (D4/5) 6. Follow sputum culture and respiratory panel. 7. D/C IV lasix, start PO lasix in light of GARIMA 8. F/U cards recs 9. DVT prophylaxis. IVUH + PO Coumadin 10. Encourage abstinence from tobacco and drug use. 11. Postdischarge, the patient will follow up with Dr. Thompson, her drafter cartographic. Subjective Allergies: Coded Allergies: No Known Allergies (Unverified , 08/06/17) Subjective Seen by cards, on HF regimen, now on AC Less SOB, cough better, no wheezing, no F/C Objective Last 24 Hour Vital Signs Date Time Temp Pulse Resp B/P (MAP) Pulse Ox O2 Delivery O2 Flow Rate FiO2 08/09/17 13:24 99 18 Room Air 21 08/09/17 13:14 101 20 98 Room Air 21 08/09/17 12:00 97.0 87 20 109/70 96 Nasal Cannula 2.0 08/09/17 12:00 93 08/09/17 09:23 125/86 08/09/17 08:00 97.7 92 20 125/86 97 Nasal Cannula 2.0 08/09/17 08:00 100 08/09/17 07:07 98 18 99 Room Air 21 08/09/17 06:57 96 18 96 Nasal Cannula 2.0 28 08/09/17 04:00 100 08/09/17 04:00 97.9 95 20 127/83 100 Nasal Cannula 2.0 08/09/17 01:33 99 20 100 Nasal Cannula 2.0 08/09/17 01:22 91 18 98 Nasal Cannula 2.0 28 08/09/17 00:00 97.7 97 20 120/73 100 Nasal Cannula 2.0 08/09/17 00:00 100 08/08/17 21:00 110/60 08/08/17 20:00 99 08/08/17 20:00 97.5 97 20 115/80 100 Nasal Cannula 2.0 08/08/17 19:14 94 20 100 Nasal Cannula 2.0 08/08/17 19:03 95 18 97 Nasal Cannula 2.0 28 Intake and Output 08/08/17 08/09/17 19:00 07:00 Intake Total 700 ml 448.652 ml Output Total 4 ml Balance 696 ml 448.652 ml Intake Oral 700 ml 250 ml IV Total 198.652 ml Output Urine Total 4 ml # Voids 3 # Bowel Movements 4 3 General Appearance: WD/WN, no acute distress HEENT: normocephalic, atraumatic, anicteric, mucous membranes moist Respiratory/Chest: chest wall non-tender, lungs clear, normal breath sounds Cardiovascular: normal peripheral pulses, normal rate, regular rhythm Abdomen: normal bowel sounds, soft, non tender, no organomegaly, non distended Extremities: no cyanosis, no clubbing, no edema Laboratory Tests 08/08/17 20:05: White Blood Count 20.7H, Red Blood Count 4.33, Hemoglobin 12.1, Hematocrit 41.4 , Mean Corpuscular Volume 96, Mean Corpuscular Hemoglobin 27.9, Mean Corpuscular Hemoglobin Concent 29.1L, Red Cell Distribution Width 16.2H, Platelet Count 365, Mean Platelet Volume 6.7, Neutrophils (%) (Auto) , Lymphocytes (%) (Auto) , Monocytes (%) (Auto) , Eosinophils (%) (Auto) , Basophils (%) (Auto) , Differential Total Cells Counted 100, Neutrophils % ( Manual) 92H, Lymphocytes % (Manual) 6L, Monocytes % (Manual) 2, Eosinophils % ( Manual) 0, Basophils % (Manual) 0, Band Neutrophils 0, Platelet Estimate Adequate, Platelet Morphology Normal, Polychromasia 1+, Hypochromasia 2+, Prothrombin Time 11.5, Prothromb Time International Ratio 1.1, Activated Partial Thromboplast Time 23 08/09/17 01:25: White Blood Count 19.5H, Red Blood Count 4.61, Hemoglobin 13.4, Hematocrit 44.1 , Mean Corpuscular Volume 96, Mean Corpuscular Hemoglobin 29.1, Mean Corpuscular Hemoglobin Concent 30.5L, Red Cell Distribution Width 16.5H, Platelet Count 397, Mean Platelet Volume 7.2, Neutrophils (%) (Auto) , Lymphocytes (%) (Auto) , Monocytes (%) (Auto) , Eosinophils (%) (Auto) , Basophils (%) (Auto) , Prothrombin Time 12.2H, Prothromb Time International Ratio 1.2H, Activated Partial Thromboplast Time 48H, Sodium Level 140, Potassium Level 4.3, Chloride Level 101, Carbon Dioxide Level 34H, Anion Gap 5, Blood Urea Nitrogen 40H, Creatinine 1.7H, Estimat Glomerular Filtration Rate 39.4, Glucose Level 211H, Calcium Level 9.5, Phosphorus Level 4.2, Magnesium Level 1.9, Troponin I 0.023 08/09/17 08:30: Activated Partial Thromboplast Time > 150*H Current Medications Medications (Trade) Dose Ordered Sig/Ana Paula Route PRN Reason Start Time Stop Time Status Last Admin Dose Admin Acetaminophen (Tylenol) 650 mg Q6HR PRN ORAL Pain Scale (3-5) 08/06/17 22:15 09/05/17 22:14 Albuterol/ Ipratropium (Albuterol/ Ipratropium) 3 ml Q6HRT HHN 08/07/17 01:00 08/12/17 00:59 08/09/17 13:14 Azithromycin (Zithromax) 250 mg DAILY ORAL 08/08/17 09:00 08/15/17 08:59 08/09/17 09:23 Furosemide (Lasix) 40 mg EVERY 12 HOURS IV 08/08/17 21:00 09/07/17 20:59 08/09/17 09:23 Heparin Sodium/ Dextrose 500 ml @ 28.413 mls/ hr adjust per protocol IV 08/09/17 11:10 09/08/17 11:09 08/09/17 15:48 Lisinopril (Zestril) 10 mg DAILY ORAL 08/08/17 21:00 09/07/17 20:59 08/09/17 09:23 Methylprednisolone Sodium Succinate (Solu-MEDROL) 40 mg Q12HR IVP 08/08/17 21:00 09/07/17 20:59 08/09/17 09:24 Warfarin Sodium (Coumadin per pharmacy) 1 ea DAILY PRN MISC Per rx protocol 08/08/17 19:30 09/07/17 19:29 Zolpidem Tartrate (Ambien) 5 mg BEDTIME PRN ORAL Insomnia 08/06/17 22:15 08/13/17 22:14 LATANYA CORDERO M.D. Aug 09, 2017 17:28
[2017-08-09 20:00] VITALS: BP 132/88
[2017-08-10] VITALS: BP 134/93
[2017-08-10] MEDS: Albuterol/Ipratropium 3ml neb HHN SCH ×4 (00:44→19:00)
[2017-08-10 04:00] VITALS: BP 130/62
[2017-08-10 06:18] LABS: INR 1.4 (0.9-1.1); PROTHROMBIN TIME 14.9 SEC (9.30-11.50)
[2017-08-10 06:19] LABS: ANION GAP 3 mmol/L (5-15); CARBON DIOXIDE 34 MMOL/L (21-32); CHLORIDE 103 MMOL/L (98-107); CREATININE 1.2 MG/DL (0.55-1.30); GLOMERULAR FILTRATION RATE 58.9 mL/min (>60); POTASSIUM 4.5 MMOL/L (3.5-5.1); SODIUM 140 MMOL/L (136-145)
[2017-08-10 08:00] VITALS: BP 106/51
[2017-08-10] MEDS: Solu-MEDROL 40mg Inj IVP SCH (09:09)
[2017-08-10] MEDS: Azithromycin 250mg tab ORAL SCH (09:11)
[2017-08-10] MEDS: Lisinopril 10mg tab ORAL SCH (09:11)
[2017-08-10] MEDS: Furosemide 40mg tab ORAL SCH (09:14)
[2017-08-10 12:00] VITALS: BP 119/82
--- NOTE | 2017-08-10 15:25 | Pulmonology Progress Note ---
Assessment/Plan Problems: (1) Cardiomyopathy Assessment/Plan ASSESSMENT: The patient is a 46-year-old female smoker with history of prior drug use, asthma as a child, chronic obstructive pulmonary disease is an adult, and congestive heart failure, presenting with shortness of breath and hypoxemia, likely secondary to an exacerbation of her chronic obstructive pulmonary disease. She has improved with IV steroids and bronchodilators. She is fairly stable at this point from a respiratory standpoint and the main issue is her hypoxemia and shortness of breath, which are slowly improving. PROBLEM LIST: 1. Chronic obstructive pulmonary disease with acute exacerbation. 2. History of asthma as a child. 3. Congestive heart failure with EF 15 and hypokinesis + a component of ADHF 4. Extensive prior tobacco use. 5. History of prior drug use. TREATMENT PLAN: 1. Optimize pulmonary hygiene/mobilize as tolerated. 2. PRN O2 keep saturation greater than 92%. 3. Around the clock and p.r.n. DuoNeb. 4. D/C SM, start PRed 40 and taper 5. Complete Azithro (D5/5) 6. Follow up cards recs 7. Continue PO laix 8. Needs outpatient HF management 9. DVT prophylaxis. PO Coumadin + IVUH (encourage compliance) 10. Encourage abstinence from tobacco and drug use. 11. Postdischarge, the patient will follow up with Dr. Thompson, her rope tow operator. Subjective Allergies: Coded Allergies: No Known Allergies (Unverified , 08/06/17) Subjective Refused IVUH, on coumadin, refused IV access AFVSS, stable on RA, less SOB, no cough, no wheezing, no F/C Cr better, diuresing Objective Last 24 Hour Vital Signs Date Time Temp Pulse Resp B/P (MAP) Pulse Ox O2 Delivery O2 Flow Rate FiO2 08/10/17 12:50 Room Air 21 08/10/17 12:49 Room Air 21 08/10/17 12:00 97.8 90 20 119/82 97 Room Air 08/10/17 12:00 92 08/10/17 09:11 106/51 08/10/17 08:00 96.4 94 20 106/51 96 Room Air 08/10/17 08:00 93 08/10/17 07:13 105 18 100 Room Air 21 08/10/17 07:07 105 16 96 Room Air 21 08/10/17 04:00 90 12/23/17 04:00 97.6 107 20 130/62 95 Room Air 08/10/17 04:00 97.6 107 20 130/62 95 Room Air 08/10/17 00:53 92 18 100 Room Air 21 08/10/17 00:44 96 16 96 Room Air 21 08/10/17 00:00 97.8 99 20 134/93 96 Nasal Cannula 2.0 08/10/17 00:00 96 08/09/17 20:00 98.2 96 20 132/88 100 Room Air 08/09/17 19:03 93 18 100 Room Air 21 08/09/17 18:56 96 16 97 Room Air 21 08/09/17 16:00 94 08/09/17 16:00 97.7 101 20 143/86 93 Nasal Cannula 2.0 Intake and Output 08/09/17 08/10/17 19:00 07:00 Intake Total 874 ml 500 ml Balance 874 ml 500 ml Intake Oral 840 ml 500 ml IV Total 34 ml # Voids 8 3 General Appearance: WD/WN, no acute distress HEENT: normocephalic, atraumatic, anicteric, mucous membranes moist Respiratory/Chest: chest wall non-tender, lungs clear, normal breath sounds, no respiratory distress Cardiovascular: normal peripheral pulses, normal rate, regular rhythm Abdomen: normal bowel sounds, soft, non tender, no organomegaly, non distended Extremities: no cyanosis, no clubbing, no edema Laboratory Tests 08/10/17 05:05: Prothrombin Time 14.9H, Prothromb Time International Ratio 1.4H, Sodium Level 140, Potassium Level 4.5, Chloride Level 103, Carbon Dioxide Level 34H, Anion Gap 3L, Blood Urea Nitrogen 39H, Creatinine 1.2, Estimat Glomerular Filtration Rate 58.9, Glucose Level 125H, Calcium Level 8.0L Current Medications Medications (Trade) Dose Ordered Sig/Ana Paula Route PRN Reason Start Time Stop Time Status Last Admin Dose Admin Acetaminophen (Tylenol) 650 mg Q6HR PRN ORAL Pain Scale (3-5) 08/06/17 22:15 09/05/17 22:14 Albuterol/ Ipratropium (Albuterol/ Ipratropium) 3 ml Q6HRT HHN 08/07/17 01:00 08/12/17 00:59 08/10/17 07:05 Azithromycin (Zithromax) 250 mg DAILY ORAL 08/08/17 09:00 08/15/17 08:59 08/10/17 09:11 Furosemide (Lasix) 40 mg DAILY ORAL 08/10/17 09:00 09/09/17 08:59 08/10/17 09:14 Heparin Sodium/ Dextrose 500 ml @ 28.413 mls/ hr adjust per protocol IV 08/09/17 11:10 09/08/17 11:09 08/09/17 15:48 Lisinopril (Zestril) 10 mg DAILY ORAL 08/08/17 21:00 09/07/17 20:59 08/10/17 09:11 Methylprednisolone Sodium Succinate (Solu-MEDROL) 30 mg Q12HR IVP 08/09/17 21:00 09/08/17 20:59 08/10/17 09:09 Warfarin Sodium (Coumadin per pharmacy) 1 ea DAILY PRN MISC Per rx protocol 08/08/17 19:30 09/07/17 19:29 Warfarin Sodium (Coumadin) 7.5 mg COUMADIN ONCE ORAL 08/10/17 17:00 08/10/17 17:01 Zolpidem Tartrate (Ambien) 5 mg BEDTIME PRN ORAL Insomnia 08/06/17 22:15 08/13/17 22:14 LATANYA CORDERO M.D. Aug 10, 2017 15:25
[2017-08-10 16:15] VITALS: BP 102/74
[2017-08-10] MEDS ORDERED: Warfarin Sodium 7.5mg ORAL ONE (17:00)
[2017-08-10 20:00] VITALS: BP 109/76
--- NOTE | 2017-08-10 20:23 | Cardiology Progress Note ---
Assessment/Plan Assessment/Plan dilated CMp possible apical thrombus CHF improving she is taking Coumadin, but refused IV Heparin continue Po Coumadin Subjective Subjective the patient reports breathing better has dypsnea with mdoerate exertion Objective Last 24 Hour Vital Signs Date Time Temp Pulse Resp B/P (MAP) Pulse Ox O2 Delivery O2 Flow Rate FiO2 08/10/17 20:13 Room Air 21 08/10/17 20:13 Room Air 21 08/10/17 16:15 97.6 89 18 102/74 97 Room Air 08/10/17 16:00 100 08/10/17 12:50 Room Air 21 08/10/17 12:49 Room Air 21 08/10/17 12:00 97.8 90 20 119/82 97 Room Air 08/10/17 12:00 92 08/10/17 09:11 106/51 08/10/17 08:00 96.4 94 20 106/51 96 Room Air 08/10/17 08:00 93 08/10/17 07:13 105 18 100 Room Air 08/10/17 07:07 105 16 96 Room Air 08/10/17 04:00 90 08/10/17 04:00 97.6 107 20 130/62 95 Room Air 08/10/17 04:00 97.6 107 20 130/62 95 Room Air 08/10/17 00:53 92 18 100 Room Air 08/10/17 00:44 96 16 96 Room Air 08/10/17 00:00 97.8 99 20 134/93 96 Nasal Cannula 2.0 08/10/17 00:00 96 General Appearance: alert EENT: PERRL/EOMI Neck: JVD Rhythm: NSR Cardiovascular: normal rate Respiratory/Chest: crackles/rales Abdomen: non tender, distended Intake and Output 08/09/17 08/10/17 19:00 07:00 Intake Total 874 ml 500 ml Balance 874 ml 500 ml Intake Oral 840 ml 500 ml IV Total 34 ml # Voids 8 3 Laboratory Tests Test 08/10/17 05:05 Prothrombin Time 14.9 SEC (9.30-11.50) H Prothromb Time International Ratio 1.4 (0.9-1.1) H Sodium Level 140 MMOL/L (136-145) Potassium Level 4.5 MMOL/L (3.5-5.1) Chloride Level 103 MMOL/L (98-107) Carbon Dioxide Level 34 MMOL/L (21-32) H Anion Gap 3 mmol/L (5-15) L Blood Urea Nitrogen 39 mg/dL (7-18) H Creatinine 1.2 MG/DL (0.55-1.30) Estimat Glomerular Filtration Rate 58.9 mL/min (>60) Glucose Level 125 MG/DL (74-106) H Calcium Level 8.0 MG/DL (8.5-10.1) ADELA OVALLES Aug 10, 2017 20:23
--- NOTE | 2017-08-10 20:41 | General Progress Note ---
Assessment/Plan Status: doing well, stable, tolerating diet, ambulating well Assessment/Plan 1. Chronic obstructive pulmonary disease with acute exacerbation. 2. History of asthma as a child. 3. acute systolic Congestive heart failure with EF 15 and hypokinesis + a component of ADHF 4. Extensive prior tobacco use. 5. History of prior drug use. PLAN: 1. Optimize pulmonary hygiene 2. Titrate down FiO2 as tolerated 1. keep saturation greater than 92%. 3. DuoNeb. 4. taper steroid 5. PO Azithro 6. Follow sputum culture 7. Lasix 40 IV BID 8. Cardiology evaluation appreciated.titrate cardiac meds. 2D echo noted 9. Encourage abstinence from tobacco and drug use. 10. anticoagulation with coumadin /heparin bridge monitor INR 11.ambulate d/w team Subjective Constitutional: Denies: no symptoms, malaise, weakness, other HEENT: Denies: no symptoms, eye pain, blurred vision, tearing, double vision, ear pain, ear discharge, nose pain, nose congestion, throat pain, throat swelling, mouth pain, mouth swelling, other Cardiovascular: Denies: no symptoms, chest pain, edema, irregular heart rate, lightheadedness, palpitations, syncope, other Respiratory: Denies: no symptoms, cough, SOB with excertion, stridor, other Gastrointestinal/Abdominal: Denies: no symptoms, abdomen distended, tarry stools, blood in stool, difficulty swallowing, nausea, poor appetite, poor fluid intake, rectal bleeding, other Genitourinary: Denies: no symptoms, frequency, hematuria, incontinence, other Neurologic/Psychiatric: Denies: no symptoms, anxiety, depressed, emotional problems, pre-existing deficit, seizure, tingling, weakness, other Endocrine: Denies: excessive sweating, flushing, intolerance to cold, intolerance to heat, increased hunger, increased thirst, increased urine, unexplained weight gain, unexplained weight loss, other Hematologic/Lymphatic: Denies: anemia, easy bleeding, easy bruising, other Allergies: Coded Allergies: No Known Allergies (Unverified , 08/06/17) Objective Last 24 Hour Vital Signs Date Time Temp Pulse Resp B/P (MAP) Pulse Ox O2 Delivery O2 Flow Rate FiO2 08/10/17 20:13 Room Air 21 08/10/17 20:13 Room Air 21 08/10/17 16:15 97.6 89 18 102/74 97 Room Air 08/10/17 16:00 100 08/10/17 12:50 Room Air 21 08/10/17 12:49 Room Air 21 08/10/17 12:00 97.8 90 20 119/82 97 Room Air 08/10/17 12:00 92 08/10/17 09:11 106/51 08/10/17 08:00 96.4 94 20 106/51 96 Room Air 08/10/17 08:00 93 08/10/17 07:13 105 18 100 Room Air 21 08/10/17 07:07 105 16 96 Room Air 21 08/10/17 04:00 90 08/10/17 04:00 97.6 107 20 130/62 95 Room Air 08/10/17 04:00 97.6 107 20 130/62 95 Room Air 08/10/17 00:53 92 18 100 Room Air 08/10/17 00:44 96 16 96 Room Air 08/10/17 00:00 97.8 99 20 134/93 96 Nasal Cannula 2.0 08/10/17 00:00 96 Intake and Output 08/09/17 08/10/17 19:00 07:00 Intake Total 874 ml 500 ml Balance 874 ml 500 ml Intake Oral 840 ml 500 ml IV Total 34 ml # Voids 8 3 Laboratory Tests 08/10/17 05:05: Prothrombin Time 14.9H, Prothromb Time International Ratio 1.4H, Sodium Level 140, Potassium Level 4.5, Chloride Level 103, Carbon Dioxide Level 34H, Anion Gap 3L, Blood Urea Nitrogen 39H, Creatinine 1.2, Estimat Glomerular Filtration Rate 58.9, Glucose Level 125H, Calcium Level 8.0L Height (Feet): 5 Height (Inches): 1.00 Weight (Pounds): 149 JESUS DESAI Aug 10, 2017 20:41
[2017-08-11] VITALS: BP 119/83
[2017-08-11] MEDS: Albuterol/Ipratropium 3ml neb HHN SCH ×4 (01:00→19:00)
[2017-08-11 04:00] VITALS: BP 134/89
[2017-08-11 08:00] VITALS: BP 125/69
[2017-08-11 09:01] LABS: BASOPHILS % (AUTO) 1.8 % (0.0-2.0); LYMPHOCYTES % (AUTO) 46.3 % (20.0-45.0); MEAN CORPUSCULAR HEMOGLOBIN 28.9 PG (27.0-31.0); MEAN CORPUSCULAR HGB CONC 30.7 G/DL (32.0-36.0); MEAN CORPUSCULAR VOLUME 94 FL (80-99); MEAN PLATELET VOLUME 6.9 FL (6.5-10.1); MONOCYTES % (AUTO) 6.7 % (1.0-10.0); NEUTROPHILS % (AUTO) 44.2 % (45.0-75.0); PLATELET COUNT 310 K/UL (150-450); RED BLOOD COUNT 4.68 M/UL (4.20-5.40); RED CELL DISTRIBUTION WIDTH 16.1 % (11.6-14.8); WHITE BLOOD COUNT 10.6 K/UL (4.8-10.8)
[2017-08-11 09:08] LABS: INR 2.2 (0.9-1.1); PROTHROMBIN TIME 22.7 SEC (9.30-11.50)
[2017-08-11] MEDS: Furosemide 40mg tab ORAL SCH (09:30)
[2017-08-11] MEDS: Lisinopril 10mg tab ORAL SCH (09:30)
--- NOTE | 2017-08-11 10:29 | Pulmonology Progress Note ---
Assessment/Plan Problems: (1) Cardiomyopathy Assessment/Plan ASSESSMENT: The patient is a 46-year-old female smoker with history of prior drug use, asthma as a child, chronic obstructive pulmonary disease is an adult, and congestive heart failure, presenting with shortness of breath and hypoxemia, likely secondary to an exacerbation of her chronic obstructive pulmonary disease. She has improved with IV steroids and bronchodilators. She is fairly stable at this point from a respiratory standpoint and the main issue is her hypoxemia and shortness of breath, which are slowly improving. PROBLEM LIST: 1. Chronic obstructive pulmonary disease with acute exacerbation. 2. History of asthma as a child. 3. Congestive heart failure with EF 15 and hypokinesis + a component of ADHF 4. Extensive prior tobacco use. 5. History of prior drug use. TREATMENT PLAN: 1. Optimize pulmonary hygiene/mobilize as tolerated. 2. PRN O2 keep saturation greater than 92%. 3. Around the clock and p.r.n. DuoNeb. 4. Continue Pred 40 and taper 5. Completed Azithro 6. Follow up cards recs 7. Continue PO lasix 8. Needs outpatient HF management 9. DVT prophylaxis. PO Coumadin 10. Encourage abstinence from tobacco and drug use. 11. Postdischarge, the patient will follow up with Dr. Thompson, her enterprise analyst. Subjective Allergies: Coded Allergies: No Known Allergies (Unverified , 08/06/17) Subjective INR 2.2, PO Coumadin only, now on Pred 40 AFVSS, stable on RA, less SOB, no cough, no wheezing, no F/C Cr continues to improve Objective Last 24 Hour Vital Signs Date Time Temp Pulse Resp B/P (MAP) Pulse Ox O2 Delivery O2 Flow Rate FiO2 08/11/17 09:30 125/69 08/11/17 08:00 97.4 95 21 125/69 97 Room Air 08/11/17 07:08 Room Air 21 08/11/17 07:08 Room Air 08/11/17 04:00 98.1 88 20 134/89 98 Room Air 08/11/17 04:00 91 08/11/17 01:59 Room Air 21 08/11/17 01:59 Room Air 21 08/11/17 00:00 91 08/11/17 00:00 97.3 92 20 119/83 98 Room Air 08/10/17 20:13 Room Air 21 08/10/17 20:13 Room Air 21 08/10/17 20:00 90 08/10/17 20:00 97.9 82 18 109/76 98 Room Air 08/10/17 16:15 97.6 89 18 102/74 97 Room Air 08/10/17 16:00 100 08/10/17 12:50 Room Air 21 08/10/17 12:49 Room Air 21 08/10/17 12:00 97.8 90 20 119/82 97 Room Air 08/10/17 12:00 92 Intake and Output 08/10/17 08/11/17 19:00 07:00 Intake Total 1080 ml Balance 1080 ml Intake Oral 1080 ml # Voids 7 2 # Bowel Movements 2 General Appearance: WD/WN, no acute distress HEENT: normocephalic, atraumatic, mucous membranes moist Respiratory/Chest: chest wall non-tender, lungs clear, normal breath sounds, no respiratory distress Cardiovascular: normal peripheral pulses, normal rate, regular rhythm Abdomen: normal bowel sounds, soft, non tender, no organomegaly, non distended Extremities: no cyanosis, no clubbing, no edema Laboratory Tests 08/11/17 07:41: White Blood Count 10.6, Red Blood Count 4.68, Hemoglobin 13.5, Hematocrit 44.0, Mean Corpuscular Volume 94, Mean Corpuscular Hemoglobin 28.9, Mean Corpuscular Hemoglobin Concent 30.7L, Red Cell Distribution Width 16.1H, Platelet Count 310 , Mean Platelet Volume 6.9, Neutrophils (%) (Auto) 44.2L, Lymphocytes (%) (Auto ) 46.3H, Monocytes (%) (Auto) 6.7, Eosinophils (%) (Auto) 1.0, Basophils (%) ( Auto) 1.8, Prothrombin Time 22.7H, Prothromb Time International Ratio 2.2H Current Medications Medications (Trade) Dose Ordered Sig/Ana Paula Route PRN Reason Start Time Stop Time Status Last Admin Dose Admin Acetaminophen (Tylenol) 650 mg Q6HR PRN ORAL Pain Scale (3-5) 08/06/17 22:15 09/05/17 22:14 Albuterol/ Ipratropium (Albuterol/ Ipratropium) 3 ml Q6HRT HHN 08/07/17 01:00 08/12/17 00:59 08/10/17 07:05 Furosemide (Lasix) 40 mg DAILY ORAL 08/10/17 09:00 09/09/17 08:59 08/11/17 09:30 Lisinopril (Zestril) 10 mg DAILY ORAL 08/08/17 21:00 09/07/17 20:59 08/11/17 09:30 Prednisone (predniSONE) 40 mg DAILY ORAL 08/11/17 09:00 09/10/17 08:59 08/11/17 09:30 Warfarin Sodium (Coumadin per pharmacy) 1 ea DAILY PRN MISC Per rx protocol 08/08/17 19:30 09/07/17 19:29 Warfarin Sodium (Coumadin) 2.5 mg COUMADIN ONCE ORAL 08/11/17 17:00 08/11/17 17:01 Zolpidem Tartrate (Ambien) 5 mg BEDTIME PRN ORAL Insomnia 08/06/17 22:15 08/13/17 22:14 LATANYA CORDERO M.D. Aug 11, 2017 10:29
[2017-08-11] MEDS ORDERED: NS 500ML ONE (10:44)
[2017-08-11] MEDS ORDERED: Tubing IV Secondary IV ONE (10:44)
[2017-08-11 12:00] VITALS: BP 131/73
--- NOTE | 2017-08-11 15:15 | Cardiology Report ---
APPROVED REPORT EKG Measurement Heart [id number] Normal sinus rhythm Biatrial enlargement Anterior infarct, age undetermined Abnormal ECG
[2017-08-11 16:00] VITALS: BP 116/83
[2017-08-11] MEDS ORDERED: Warfarin Sodium 2.5mg ORAL ONE (17:00)
--- NOTE | 2017-08-11 17:30 | Cardiology Progress Note ---
Assessment/Plan Assessment/Plan dilated CMp possible apical thrombus CHF itoday is therapeutic on Coumadin the patient is parallel on Prednisone, which increases risk of GI bleed will d/w pulmonary Subjective Subjective no significant changes has mdoerate dyspnea no orthopena ambrosio black stool Objective Last 24 Hour Vital Signs Date Time Temp Pulse Resp B/P (MAP) Pulse Ox O2 Delivery O2 Flow Rate FiO2 08/11/17 16:00 97.4 91 21 116/83 94 Room Air 08/11/17 12:35 Room Air 21 08/11/17 12:35 Room Air 21 08/11/17 12:00 97.4 94 21 131/73 96 Room Air 08/11/17 11:47 90 08/11/17 09:30 125/69 08/11/17 08:00 97.4 95 21 125/69 97 Room Air 08/11/17 07:48 93 08/11/17 07:08 Room Air 08/11/17 07:08 Room Air 21 08/11/17 04:00 98.1 88 20 134/89 98 Room Air 08/11/17 04:00 91 08/11/17 01:59 Room Air 21 08/11/17 01:59 Room Air 21 08/11/17 00:00 91 08/11/17 00:00 97.3 92 20 119/83 98 Room Air 08/10/17 20:13 Room Air 21 08/10/17 20:13 Room Air 21 08/10/17 20:00 90 08/10/17 20:00 97.9 82 18 109/76 98 Room Air General Appearance: other - SOB EENT: PERRL/EOMI Neck: JVD Rhythm: NSR Cardiovascular: regular rhythm Respiratory/Chest: crackles/rales Abdomen: soft Extremities: no swelling Intake and Output 08/10/17 08/11/17 19:00 07:00 Intake Total 1080 ml Balance 1080 ml Intake Oral 1080 ml # Voids 7 2 # Bowel Movements 2 Laboratory Tests Test 08/11/17 07:41 White Blood Count 10.6 K/UL (4.8-10.8) Red Blood Count 4.68 M/UL (4.20-5.40) Hemoglobin 13.5 G/DL (12.0-16.0) Hematocrit 44.0 % (37.0-47.0) Mean Corpuscular Volume 94 FL (80-99) Mean Corpuscular Hemoglobin 28.9 PG (27.0-31.0) Mean Corpuscular Hemoglobin Concent 30.7 G/DL (32.0-36.0) L Red Cell Distribution Width 16.1 % (11.6-14.8) H Platelet Count 310 K/UL (150-450) Mean Platelet Volume 6.9 FL (6.5-10.1) Neutrophils (%) (Auto) 44.2 % (45.0-75.0) L Lymphocytes (%) (Auto) 46.3 % (20.0-45.0) H Monocytes (%) (Auto) 6.7 % (1.0-10.0) Eosinophils (%) (Auto) 1.0 % (0.0-3.0) Basophils (%) (Auto) 1.8 % (0.0-2.0) Prothrombin Time 22.7 SEC (9.30-11.50) H Prothromb Time International Ratio 2.2 (0.9-1.1) H ADELA KEMP Aug 11, 2017 17:30
[2017-08-11 20:00] VITALS: BP 125/85
--- NOTE | 2017-08-11 22:28 | General Progress Note ---
Assessment/Plan Assessment/Plan 1. Chronic obstructive pulmonary disease with acute exacerbation. 2. History of asthma as a child. 3. acute systolic Congestive heart failure with EF 15 and hypokinesis + a component of ADHF 4. Extensive prior tobacco use. 5. History of prior drug use. PLAN: 1. Optimize pulmonary hygiene 2. Titrate down FiO2 as tolerated 1. keep saturation greater than 92%. 3. DuoNeb. 4. taper steroid 5. PO Azithro 6. Follow sputum culture 7. Lasix 40 PO BID 8. Cardiology ef/u 9. Encourage abstinence from tobacco and drug use. 10. anticoagulation with coumadin /heparin bridge monitor INR 11.ambulate d/w team Subjective Constitutional: Denies: no symptoms, chills, diaphoresis, fever, malaise, weakness, other HEENT: Denies: no symptoms, eye pain, blurred vision, tearing, double vision, ear pain, ear discharge, nose pain, nose congestion, throat pain, throat swelling, mouth pain, mouth swelling, other Cardiovascular: Denies: no symptoms, chest pain, edema, irregular heart rate, lightheadedness, palpitations, syncope, other Respiratory: Denies: no symptoms, cough, orthopnea, shortness of breath, SOB with excertion, SOB at rest, sputum, stridor, wheezing, other Gastrointestinal/Abdominal: Denies: no symptoms, abdomen distended, abdominal pain, black stools, tarry stools, blood in stool, constipated, diarrhea, difficulty swallowing, nausea, poor appetite, poor fluid intake, rectal bleeding , vomiting, other Genitourinary: Denies: no symptoms, burning, discharge, frequency, flank pain, hematuria, incontinence, pain, urgency, other Neurologic/Psychiatric: Denies: no symptoms, anxiety, depressed, emotional problems, headache, numbness, paresthesia, pre-existing deficit, seizure, tingling, tremors, weakness, other Endocrine: Denies: no symptoms, excessive sweating, flushing, intolerance to cold, intolerance to heat, increased hunger, increased thirst, increased urine, unexplained weight gain, unexplained weight loss, other Hematologic/Lymphatic: Denies: no symptoms, anemia, easy bleeding, easy bruising, other Allergies: Coded Allergies: No Known Allergies (Unverified , 08/06/17) All Systems: reviewed and negative except above Objective Last 24 Hour Vital Signs Date Time Temp Pulse Resp B/P (MAP) Pulse Ox O2 Delivery O2 Flow Rate FiO2 08/11/17 20:00 111 08/11/17 20:00 98.1 95 20 125/85 100 Room Air 08/11/17 19:36 Room Air 21 08/11/17 19:36 Room Air 21 08/11/17 16:12 95 08/11/17 16:00 97.4 91 21 116/83 94 Room Air 08/11/17 12:35 Room Air 21 08/11/17 12:35 Room Air 21 08/11/17 12:00 97.4 94 21 131/73 96 Room Air 08/11/17 11:47 90 08/11/17 09:30 125/69 08/11/17 08:00 97.4 95 21 125/69 97 Room Air 08/11/17 07:48 93 08/11/17 07:08 Room Air 21 08/11/17 07:08 Room Air 21 08/11/17 04:00 98.1 88 20 134/89 98 Room Air 08/11/17 04:00 91 08/11/17 01:59 Room Air 21 08/11/17 01:59 Room Air 21 08/11/17 00:00 91 08/11/17 00:00 97.3 92 20 119/83 98 Room Air Intake and Output 08/10/17 08/11/17 19:00 07:00 Intake Total 1080 ml Balance 1080 ml Intake Oral 1080 ml # Voids 7 2 # Bowel Movements 2 Laboratory Tests 08/11/17 07:41: White Blood Count 10.6, Red Blood Count 4.68, Hemoglobin 13.5, Hematocrit 44.0, Mean Corpuscular Volume 94, Mean Corpuscular Hemoglobin 28.9, Mean Corpuscular Hemoglobin Concent 30.7L, Red Cell Distribution Width 16.1H, Platelet Count 310 , Mean Platelet Volume 6.9, Neutrophils (%) (Auto) 44.2L, Lymphocytes (%) (Auto ) 46.3H, Monocytes (%) (Auto) 6.7, Eosinophils (%) (Auto) 1.0, Basophils (%) ( Auto) 1.8, Prothrombin Time 22.7H, Prothromb Time International Ratio 2.2H Height (Feet): 5 Height (Inches): 1.00 Weight (Pounds): 149 SHAMEKH,JESUS Aug 11, 2017 22:28
[2017-08-12] VITALS: BP 132/78
[2017-08-12 04:00] VITALS: BP 129/88
[2017-08-12 05:21] LABS: INR 2.7 (0.9-1.1); PROTHROMBIN TIME 28.8 SEC (9.30-11.50)
[2017-08-12 08:00] VITALS: BP 150/85
[2017-08-12] MEDS: Lisinopril 10mg tab ORAL SCH (09:16)
[2017-08-12] MEDS: Furosemide 40mg tab ORAL SCH (09:16)
--- NOTE | 2017-08-12 10:57 | Pulmonology Progress Note ---
Assessment/Plan Problems: (1) Cardiomyopathy Assessment/Plan ASSESSMENT: The patient is a 46-year-old female smoker with history of prior drug use, asthma as a child, chronic obstructive pulmonary disease is an adult, and congestive heart failure, presenting with shortness of breath and hypoxemia, likely secondary to an exacerbation of her chronic obstructive pulmonary disease. She has improved with IV steroids and bronchodilators. She is fairly stable at this point from a respiratory standpoint and the main issue is her hypoxemia and shortness of breath, which are slowly improving. PROBLEM LIST: 1. Chronic obstructive pulmonary disease with acute exacerbation. 2. History of asthma as a child. 3. Congestive heart failure with EF 15 and hypokinesis + a component of ADHF 4. Extensive prior tobacco use. 5. History of prior drug use. TREATMENT PLAN: 1. Optimize pulmonary hygiene/mobilize as tolerated. 2. PRN O2 keep saturation greater than 92%. 3. DUOnebs q6WA and PRN 4. Decrease Pred to 30 and taper --> If D/C'd today would taper as follows: 30 mg PO qDaily x 2 days, then 20 mg PO qDaily x 2 days, then 10 mg PO qDaily x 2 days and off 5. Start Advair and Spiriva 6. Follow up cards recs 7. Continue PO lasix 8. Needs outpatient HF management 9. DVT prophylaxis. PO Coumadin 10. Encourage abstinence from tobacco and drug use. 11. Postdischarge, the patient will follow up with Dr. Thompson, her research center director. Subjective Allergies: Coded Allergies: No Known Allergies (Unverified , 08/06/17) Subjective AFVSS, RACHEL, stable on RA No cough, no SOB, no F/C, no wheezing Objective Last 24 Hour Vital Signs Date Time Temp Pulse Resp B/P (MAP) Pulse Ox O2 Delivery O2 Flow Rate FiO2 08/12/17 09:16 150/85 08/12/17 08:00 97.4 87 20 150/85 97 Room Air 08/12/17 04:00 86 08/12/17 04:00 98.1 85 20 129/88 98 Room Air 08/12/17 00:01 90 08/12/17 00:00 98.2 92 20 132/78 100 Room Air 08/11/17 20:00 111 08/11/17 20:00 98.1 95 20 125/85 100 Room Air 08/11/17 19:36 Room Air 21 08/11/17 19:36 Room Air 21 08/11/17 16:12 95 08/11/17 16:00 97.4 91 21 116/83 94 Room Air 08/11/17 12:35 Room Air 21 08/11/17 12:35 Room Air 21 08/11/17 12:00 97.4 94 21 131/73 96 Room Air 08/11/17 11:47 90 Intake and Output 08/11/17 08/12/17 19:00 07:00 Intake Total 500 ml 600 ml Balance 500 ml 600 ml Intake Oral 500 ml 600 ml # Voids 4 # Bowel Movements 4 General Appearance: WD/WN, no acute distress HEENT: normocephalic, atraumatic, mucous membranes moist Respiratory/Chest: chest wall non-tender, lungs clear, normal breath sounds, no respiratory distress Cardiovascular: normal peripheral pulses, normal rate, regular rhythm Abdomen: normal bowel sounds, soft, non tender, no organomegaly, non distended Extremities: no cyanosis, no clubbing, no edema Laboratory Tests 08/12/17 03:00: Prothrombin Time 28.8H, Prothromb Time International Ratio 2.7H Current Medications Medications (Trade) Dose Ordered Sig/Ana Paula Route PRN Reason Start Time Stop Time Status Last Admin Dose Admin Acetaminophen (Tylenol) 650 mg Q6HR PRN ORAL Pain Scale (3-5) 08/06/17 22:15 09/05/17 22:14 Furosemide (Lasix) 40 mg DAILY ORAL 08/10/17 09:00 09/09/17 08:59 08/12/17 09:16 Lisinopril (Zestril) 10 mg DAILY ORAL 08/08/17 21:00 09/07/17 20:59 08/12/17 09:16 Prednisone (predniSONE) 30 mg DAILY ORAL 08/13/17 09:00 09/12/17 08:59 UNV Salmeterol Xinafoate/ Fluticasone (Advair 250/50 Diskus) 1 puffs BID INH 08/12/17 18:00 09/11/17 17:59 UNV Tiotropium Gamaliel (Spiriva Inhaler) 1 puff DAILY INH 08/13/17 09:00 09/12/17 08:59 UNV Warfarin Sodium (Coumadin per pharmacy) 1 ea DAILY PRN MISC Per rx protocol 08/08/17 19:30 09/07/17 19:29 Zolpidem Tartrate (Ambien) 5 mg BEDTIME PRN ORAL Insomnia 08/06/17 22:15 08/13/17 22:14 LATANYA CORDERO M.D. Aug 12, 2017 10:57
[2017-08-12] MEDS ORDERED: Albuterol/Ipratropium 3ml neb HHN PRN (11:00)
[2017-08-12 12:00] VITALS: BP 129/89
--- NOTE | 2017-08-12 12:34 | Discharge Instructions ---
Discharge Instructions Discharge Instructions Follow up with: Marketing Assistant Manager in 7-10 day. PCP within 3 days to check INR while on coumadin Diet: cardiac 2 GM Na, low fat Resume Normal Activity?: Yes Activity: resume normal activities Pneumonia Vaccine: pt rcvd vaccine prior to this visit Influenza Vaccine (May to Oct): pt rcvd vaccine prior to this visit For Surgical Patients May shower: Yes For Congestive Heart Failure Reminder Report to your physician any weight gain of 5 pounds or more in one week. JESUS DESAI Aug 12, 2017 12:34
[2017-08-12] MEDS ORDERED: Albuterol/Ipratropium 3ml neb HHN SCH (13:00)
[2017-08-12] MEDS ORDERED: Advair 250/50 Inhaler - 14 dose INH SCH (22:00)
--- NOTE | 2017-08-12 23:00 | Discharge Summary ---
DATE OF ADMISSION: 08/06/2017 DATE OF DISCHARGE: 08/12/[address] Morgan Ennis for future re-admission to [facility]. CONSULTANTS: 1. Cardiology. 2. Pulmonology. PROCEDURE: Please refer to the chart for full list of procedures including a 2D echo. Admitting diagnosis: acute respiratory failure acute on chronic systolic CHF exacerbation COPD exacerbation dilated cardiomyopathy dyspnea hypoxemia Discharge diagnosis: acute respiratory failure acute on chronic systolic CHF exacerbation COPD exacerbation dilated cardiomyopathy dyspnea moderate/severe tricuspid regurgitation possible apical thrombus hypoxemia COMPLICATIONS: None. HOSPITAL COURSE: Please refer to initial history and physical for more detailed information. This is a pleasant 46-year-old woman with a history of COPD with multiple recent admissions; dilated cardiomyopathy, most likely due to polysubstance abuse, with ejection fraction of 15% to 20%; and hypertension, who presented to the emergency room with complaint of shortness of breath. The patient was in acute on chronic systolic heart failure on top of COPD exacerbation. The patient was initially placed on BiPAP and BiPAP was tapered. The patient was seen by associate professor of psychology and waste collector. The patient was receiving around the clock nebulizer treatment. The patient was started on antibiotics empirically. The patient's medications were adjusted. A 2D echo was done. The patient had moderate to severe tricuspid valve regurgitation with evidence of dilated cardiomyopathy with ejection fraction of 15% to 20%. The patient was started on aggressive IV diuresis and tapered to oral twice daily. The patient also was started on tapering IV Solu-Medrol and switched to oral dose prior to discharge. The patient's electrolytes were checked and corrected accordingly. The patient was noted to have possible apical thrombus, for which she was started on anticoagulation with Coumadin. INR was therapeutic prior to discharge. The patient was able to tolerate oral intake and had a bowel movement prior to discharge. Due to the low ejection fraction, the patient required vest or evaluation for the ASV placement empirically for the prevention of sudden cardiac . The patient was aware and will follow up with associate professor of psychology. DISPOSITION: Home. FOLLOWUP: Follow up with primary care physician within three days to check INR while on Coumadin. Follow up with associate professor of psychology within 7 to 10 days. Follow up with waste collector within 7 to 10 days. DISCHARGE MEDICATIONS: Please refer to discharge MAR for complete list of medications. I have reviewed at length. DIET: No added salt and low fat. SPECIAL INSTRUCTIONS: The patient was given instructions to stay away from green vegetables and food to prevent interaction with Coumadin. The patient was advised to watch her weight to make sure that if she was off 3 to 5 pounds, to just call her primary care physician and likely to up titrate the diuresis. The patient was strongly suggested to stop all illicit drug use, to which she agreed. ACTIVITY: As tolerated. CONDITION UPON DISCHARGE: Stable. Time spent on discharge planning today is 45 minutes. Morgan D Parul Ennis DR: GABE JOB#: [id number] CC: JEANETTE
== END 2017-08-12 13:15 | disposition home or self-care (01) | DRG 140 ==
LOC: EDBD 19:46 → EMR 20:05 → 2W 20:50 → EDBEDREQ 21:31
PROC: 5A09357 Assistance with Respiratory Ventilation, Less than 24 Consecutive Hours, Continuous Positive Airway Pressure (ICD-10-PCS; principal; 2017-08-06)
DX: J44.1 Chronic obstructive pulmonary disease with (acute) exacerbation (principal); J96.01 Acute respiratory failure with hypoxia; I50.23 Acute on chronic systolic (congestive) heart failure; I42.0 Dilated cardiomyopathy; I51.3 Intracardiac thrombosis, not elsewhere classified; Z87.891 Personal history of nicotine dependence; I11.0 Hypertensive heart disease with heart failure; I36.1 Nonrheumatic tricuspid (valve) insufficiency; F14.21 Cocaine dependence, in remission; I34.0 Nonrheumatic mitral (valve) insufficiency
CPT/HCPCS: 36415; 71010; 80048; 80053; 80307; 82550; 82553; 83735; 83880; 84100; 84484; 85007; 85025; 85610; 85730; 93005; 93306; 94640; 94664; 99285; J7620